=== PATIENT | female | born 1955 | race Caucasian/White ===

== ENCOUNTER 2018-03-16 11:31 | Outpatient (CLI) | payer OTHER ==
--- NOTE | 2018-03-17 09:17 | DEXA Report ---
Procedure Date: 03/16/2018 Accession Number: [id number] / [id number] Procedure: DEX - Dexa Spine and/or Hip CPT Code: FULL RESULT: EXAM: Dexa Spine and/or Hip DATE: 03/16/2018 1:57 PM CLINICAL HISTORY: OSTEOPENIA TECHNIQUE: Dual energy x-ray absorptiometry (DXA) was performed on a [employer] System. Regions measured are the AP Spine, femoral neck, and if needed forearm. COMPARISON: None. In accordance with the International Society for Clinical Densitometry (ISCD) guidelines, data from previous exams may be reanalyzed using current recommendations and techniques. This is done to allow a more accurate basis for comparison with the current study. FINDINGS: The data for the lumbar spine is as follows: BMD (g/cm/cm) T-SCORE Z-SCORE REGION L1 0.881 -2.1 -0.8 L2 0.965 -2.0 -0.7 L3 0.957 -2.0 -0.7 L4 0.944 -2.1 -0.8 TOTAL 0.940 -2.0 -0.7 NOTE: All evaluable vertebrae are used for classification The data for the hip is as follows: BMD (g/cm/cm) T-SCORE Z-SCORE REGION Neck 0.848 -1.4 -0.1 TOTAL 0.864 -1.1 -0.2 NOTE: The femoral neck or total proximal femur, whichever is lowest, is used for classification. IMPRESSION: THE WHO CLASSIFICATION BASED ON THE INTERNATIONAL REFERENCE STANDARD IS OSTEOPENIA. THE FRACTURE RISK IS INCREASED. RECOMMENDATION: Patients with diagnosis of osteoporosis or osteopenia should have regular bone mineral density assessment. For those eligible for Medicare, routine testing is allowed once every 2 years. Testing frequency can be increased for patients who have rapidly progressing disease or for those who are receiving medical therapy to restore bone mass. COMMENT: World Health Organization (WHO) definitions for osteoporosis and osteopenia: NORMAL BMD: T-score at -1.0 or higher, fracture risk is low OSTEOPENIA BMD: T-score between -1.0 and -2.5, fracture risk is increased. OSTEOPOROSIS BMD: T-score at -2.5 or lower, fracture risk is high. National Osteoporosis Foundation recommends: 1. Obtain adequate dietary calcium (at least 1200 mg per day) and vitamin D (400-800 international units per day). 2. Participate, as appropriate, in regular weightbearing and muscle-strengthening exercise. 3. Avoid tobacco use and reduce alcohol and caffeine intake. 4. For more detailed information see the website at www.NOF.org.
== END 2018-03-16 11:32 | disposition home or self-care (01) ==
LOC: DI 11:31
PROVIDERS: ATTEND Registered Nurse
DX: M85.89 Other specified disorders of bone density and structure, multiple sites (principal)
CPT/HCPCS: 77080

== ENCOUNTER 2018-03-16 11:34 | Outpatient (CLI) | payer OTHER ==
--- NOTE | 2018-03-17 09:59 | Mammography Report ---
Procedure Date: 03/16/2018 Accession Number: [id number] / [id number] Procedure: KENNEY - Screening Mammo Dig Bilat CPT Code: FULL RESULT: EXAM: Screening Mammo Dig Bilat DATE: 03/16/2018 2:03 PM CLINICAL HISTORY: 62-year-old with history of late childbearing for screening TECHNIQUE: Bilateral CC and MLO views were obtained. COMPARISON: 01/03/2013, 12/25/2010 FINDINGS: The breasts demonstrate scattered fibroglandular densities bilaterally. Coarse, typically benign calcifications are present. No suspicious masses, clustered microcalcifications, or regions of architectural distortion are identified. IMPRESSION: Benign findings RECOMMENDATION: Routine annual screening unless otherwise clinically indicated. BIRADS CATEGORY 2: Benign findings STANDARD QUALIFYING STATEMENTS: 1. This examination was reviewed with the aid of Computer-Aided Detection (CAD). 2. A negative or benign imaging report should not delay biopsy if clinically suspicious findings are present. Consider surgical consultation if warrented. More than 5% of cancers are not identified by imaging. 3. Dense breasts may obscure an underlying neoplasm.
== END 2018-03-16 11:35 | disposition home or self-care (01) ==
LOC: DI 11:34
PROVIDERS: ATTEND Registered Nurse
DX: Z12.31 Encounter for screening mammogram for malignant neoplasm of breast (principal)
CPT/HCPCS: 77067

== ENCOUNTER 2022-01-06 10:45 | Outpatient (CLI) | payer MEDICARE, OTHER ==
--- NOTE | 2022-01-06 15:30 | DEXA Report ---
PROCEDURE: Dexa Spine and/or Hip INDICATIONS: OT DISRD OF BONE DENSITY AND STRUCTURE, MULTIPLE TECHNIQUE: Dual energy x-ray absorptiometry (DXA) was performed on a [employer]. Regions measur ed are the AP Spine, femoral neck, and if needed forearm. COMPARISON: DEXA, 03/16/2018. FINDINGS: Lumbar Spine: Bone Mineral Density 0.931 g/cm/cm,T score -2.1, osteopenic. Left Hip: Bone Mineral Density 0.895 g/cm/cm,T score -0.9, osteopenic. Left Femoral Neck: Bone Mineral Density 0.822 g/cm/cm, T score -1.6, osteopenic. (T score greater or equal to -1.0: NORMAL) (T score from -1.1 to -2.4: OSTEOPENIA) (T score less than or equal to -2.5 to: OSTEOPOROSIS) Impression: 1. Based on WHO criteria, the patient is osteopenic. Compared to the last exam, there is no statistic ally significant change. Patients with diagnosis of osteoporosis or osteopenia should have regular bone mineral density assess ment. For those eligible for Medicare, routine testing is allowed once every 2 years. Testing frequ ency can be increased for patients who have rapidly progressing disease or for those who are receivin g medical therapy to restore bone mass. Reviewed by: Mary García MD on 01/06/2022 3:29 PM PDT Approved by: Mary García MD on 01/06/2022 3:29 PM PDT Station ID: [id number]
== END 2022-01-06 10:46 | disposition home or self-care (01) ==
LOC: DI 10:45
PROVIDERS: ATTEND Registered Nurse
DX: M85.89 Other specified disorders of bone density and structure, multiple sites (principal)

== ENCOUNTER 2022-01-20 07:46 | Outpatient (CLI) | payer MEDICARE, OTHER ==
--- NOTE | 2022-01-23 16:22 | Mammography Report ---
BILATERAL DIGITAL SCREENING MAMMOGRAM 3D/2D: 01/20/2022 CLINICAL: Routine screening. Comparison is made to exams dated: 03/16/2018 mammogram and 01/03/2013 mammogram - [facility]. There are scattered fibroglandular elements in both breasts. No significant masses, calcifications, or other findings are seen in either breast. There has been no significant interval change. IMPRESSION: NEGATIVE There is no mammographic evidence of malignancy. A 1 year screening mammogram is recommended. This exam was interpreted at Station ID: [id number]. NOTE: For mammograms, a report in lay terms will be sent to the patient. Approximately 15% of breast malignancies will not be visualized mammographically. In the management of a palpable breast mass, a negative mammogram must not discourage biopsy of a clinically suspicious lesion. Electronically Signed By: Alexys Werner M.D. ar/penrad:01/20/2022 09:06:53 ACR BI-RADS Category 1: Negative 3341F PARENCHYMAL PATTERN: (A) - The breast(s) demonstrate(s) scattered fibroglandular densities. BI-RADS CATEGORY: (1) - 1 RECOMMENDATION: (ANNUAL) - Recommend routine annual screening mammography. [id number] 1 year screening LATERALITY: (B)
== END 2022-01-20 07:47 | disposition home or self-care (01) ==
LOC: DI.S 07:46
PROVIDERS: ATTEND Registered Nurse
DX: Z12.31 Encounter for screening mammogram for malignant neoplasm of breast (principal)

== ENCOUNTER 2023-12-31 09:56 | Day surgery (SDC) | payer MEDICARE ==
[2023-12-31] MEDS: LACTATED RINGERS 1,000 ML IV ONE (10:02)
[2023-12-31 10:21] VITALS: O2SAT 98
--- NOTE | 2023-12-31 10:23 | ANESTHESIA ---
Pre-Anesthesia VS, & Labs - Diagnosis screening - Procedure colonoscopy Vital Signs: Temp Pulse Resp BP Pulse Ox O2 Flow Rate 36.6 C 71 12 143/63 H 98 12/31/23 10:13 12/31/23 10:13 12/31/23 10:13 12/31/23 10:13 12/31/23 10:13 Height: 5 ft 1 in Weight (kg): 71 kg Body Mass Index: 29.5 BMI Classification: Overweight - NPO >8 hours Last Fluid Intake: am prep - Is Patient ?: No - Lab Results Lab results reviewed: Yes Home Medications and Allergies Home Medications: Ambulatory Orders No Known Home Medications 12/30/23 No Known Home Medications 12/30/23 Allergies/Adverse Reactions: Allergies Allergy/AdvReac Type Severity Reaction Status Date / Time Sulfa (Sulfonamide AdvReac Itching Verified 12/31/23 10:08 Antibiotics) Anes History & Medical History - Anesthetic History Anesthesia Complications: reports: No previous complications Family history of Anesthesia Complications: Denies Family history of Malignant Hyperthermia: Denies - Medical History Cardiovascular: reports: None Pulmonary: reports: None Gastrointestinal: reports: Diverticulitis Urinary: reports: None Musculoskeletal: reports: None Endocrine/Autoimmune: reports: None Skin: reports: None History of Cancer?: No - Surgical History General: reports: Colonoscopy Eyes Ears Nose Throat (EENT): reports: Tonsil/Adenoidectomy Gynecologic: reports: Tubal ligation, Hysterectomy, Other Exam General: Alert, Oriented x3, Cooperative Dental: WNL Mouth Openin Fingerbreadth Neck Mobility: Normal Mallampati classification: II Thyromental Distance: 4-6 cm Respiratory: Lungs clear, Normal breath sounds, No respiratory distress Cardiovascular: Regular rate Neurological: Normal speech Mental/Cognitive Status: Alert/Oriented X3, Normal for patient Cognitive Status: Within normal limits Plan Anesthesia Type: Total IV Consent for Procedure(s) Verified and Reviewed: Yes Code Status: Attempt Resuscitation ASA classification: 2-Mild systemic disease Is this case an emergency?: No
--- NOTE | 2023-12-31 11:44 | HISTORY & PHYSICAL EXAMINATION ---
Chief Complaint - Chief Complaint Chief Complaint: here for colonoscopy History of Present Illness - History Obtained From Records Reviewed: yes History obtained from: pt Exam Limitations: none - History of Present Illness HPI Comment/Other: history colonoscopy and tubular adenoma in 2016. hx mild diverticulitis. no gi symptoms at this time. 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, Other HEENT: reports: Tonsil/Adenoidectomy Meds/Allgy - Home Medications Home Medications: Ambulatory Orders Medication Instructions Recorded Confirmed No Known Home Medications 12/30/23 12/31/23 - Allergies Allergies/Adverse Reactions: Allergies Allergy/AdvReac Type Severity Reaction Status Date / Time Sulfa (Sulfonamide AdvReac Itching Verified 12/31/23 10:08 Antibiotics) Review of Systems - Other Findings Other Findings: 10 pt ros as above otherwise unremarkable Exam - Vital Signs Vital Signs: Vital Signs x48h Temp Pulse Resp BP Pulse Ox 12/31/23 10:13 36.6 C 71 12 143/63 H 98 - Physical Exam General Appearance: positive: No acute distress, Alert Eyes Bilateral: positive: PERRL ENT: positive: No signs of dehydration Neck: positive: No JVD Respiratory: positive: No respiratory distress Cardiovascular: positive: Regular rate & rhythm Abdomen: positive: No distention Neurologic/Psychiatric: positive: Oriented x3 Conclusion/Plan - Problem List (1) Colon cancer screening Conclusion/Plan: plan colonoscopy. parq held and consent obtained - Lab Results Lab results reviewed: Yes
[2023-12-31] MEDS: LACTATED RINGERS 500 ML IV ONE (12:30)
[2023-12-31 12:44] VITALS: BP 118/65
--- NOTE | 2023-12-31 13:08 | ANESTHESIA POST OP EVALUATION ---
Anesthesia Post Eval - Post Anesthesia Eval Vitals: Last Vital Signs Temp 36.9 C 12/31/23 12:30 Pulse 68 12/31/23 12:41 Resp 18 12/31/23 12:41 BP 118/65 12/31/23 12:41 Pulse Ox 98 12/31/23 12:41 O2 Flow Rate CV Function Including HR & BP: Stable Pain Control: Satisfactory Nausea & Vomiting: Negative Mental Status: Baseline Respiratory Status: Airway Patent Hydration Status: Satisfactory Anesthesia Complications: None
== END 2023-12-31 09:57 | disposition home or self-care (01) ==
LOC: SDS 09:56
PROVIDERS: ATTEND Surgery
DX: Z12.11 Encounter for screening for malignant neoplasm of colon (principal); K57.30 Diverticulosis of large intestine without perforation or abscess without bleeding; Z87.19 Personal history of other diseases of the digestive system; Z86.010 Personal history of colon polyps
CPT/HCPCS: G0105; J7120

== ENCOUNTER 2024-04-05 18:19 | Emergency (ER) | payer MEDICARE ==
[2024-04-05 18:25] VITALS: BP 160/92; O2SAT 97
--- NOTE | 2024-04-05 18:41 | ED Physician Documentation ---
PD HPI HEAD INJURY - Stated complaint Stated Complaint: FALL - Chief complaint Chief Complaint: Trauma Hd/Nk - Additional information Additional information: 68-year-old female presents emergency department for ground-level fall hitting the back of her head. Patient said that she missed a step and fell and hit the back of her head on something that she describes as a bleacher. She is not on blood thinners she has no loss of consciousness no nausea or vomiting she says that she has a significant hematoma to the posterior scalp. No neurological deficits no neck pain able to ambulate without any difficulty no dizziness no nausea no headache. 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, Other HEENT: Tonsil/Adenoidectomy - Present Medications Home Medications: Ambulatory Orders Medication Instructions Recorded Confirmed No Known Home Medications 12/30/23 12/31/23 - Allergies Allergies/Adverse Reactions: Allergies Allergy/AdvReac Type Severity Reaction Status Date / Time Sulfa (Sulfonamide AdvReac Itching Verified 04/05/24 18:22 Antibiotics) - Social History Does the pt smoke?: No Smoking Status: Never smoker Does the pt drink ETOH?: No Does the pt have substance abuse?: No - Immunizations Immunizations are current?: Yes - POLST Patient has POLST: No PD ED PE NORMAL - Vitals Vital signs reviewed: Yes - General General: Alert and oriented X 3, No acute distress, Well developed/nourished - HEENT HEENT: Atraumatic, PERRL, EOMI - Neck Neck: No bony TTP, C-Spine cleared by NEXUS criteria - Cardiac Cardiac: RRR - Respiratory Respiratory: No respiratory distress - Abdomen Abdomen: Normal bowel sounds - Derm Derm: Other (2 cm laceration to the posterior scalp with about a 3 cm hematoma) - Neuro Neuro: Alert and oriented X 3, water main pipe layer 2-12 intact, No motor deficit, No sensory deficit, Normal speech Eye Opening: Spontaneous Motor: Obeys Commands Verbal: Oriented GCS Score: 15 - Psych Psych: Normal mood, Normal affect Results - Vitals Vitals: Oxygen O2 Source Room air - Rads (name of study) Head CT without con Relevant Findings:: Final report received, EMP independent interpretation of test, Other (No acute intracranial hemorrhages or abnormalities) PD Medical Decision Making - ED course ED course: 68-year-old female presents emergency department for head injury. Patient missed a step but sounds like it was strictly a mechanical fall hitting the back of her head on a bleacher like object. She did not lose consciousness we went ahead and do a head CT without con for further evaluation and there is no intracranial hemorrhages or abnormalities. She did have a 2 cm laceration to the posterior scalp and we were able to close the wound well with hair trepanation technique with 1 knot as well as Dermabond. Patient remains neurologically intact NIH score 0, able to ambulate with any difficulty she was willing to take some Tylenol as she was starting to feel more sore she was sitting there continues to deny neck pain, neck was cleared by Nexus criteria not warranting any cervical spine imaging. Return precautions given all questions answered patient told to follow-up primary care provider as needed all questions answered patient safe to discharge with her daughter. Departure - Departure Disposition: 01 Home, Self Care Clinical Impression: Head injury, Scalp laceration Instructions: ED Laceration Facial Skin Glue Comments: Thank you for trusting us with your care. We have completed a head CT and we are not seeing any intracranial hemorrhage or abnormalities. Please follow-up with your primary care provider as needed over the next couple days if you start to feel nauseous having any worsening head pain or starting to feel confused or dizzy please come back into the emergency department for reevaluation. We have put some glue on your scalp with something called in hair apposition technique there is a knot in the back of your hair this will eventually grow out if it bot hers you can eventually cut it out. You can wash your scalp with soap and water tomorrow but the more dry you can keep it at the bed of the glue will stay on. You can take Tylenol ibuprofen for any pain or discomfort and please have a low threshold to come back into the ER if you are noticing any neurological changes or deficits. Forms: PCP List Discharge Date/Time: 04/05/24 20:45
--- NOTE | 2024-04-05 19:56 | CT Report ---
PROCEDURE: Head WO INDICATIONS: posterior head hematoma. fall from stair TECHNIQUE: Noncontrast 4.5 mm thick angled axial sections acquired from the foramen magnum to the vertex. For r adiation dose reduction, the following was used: automated exposure control, adjustment of mA and/or kV according to patient size. COMPARISON: None. FINDINGS: Image quality: Excellent. CSF spaces: Basal cisterns are patent. No extra-axial fluid collections. Ventricles are normal in size and shape. Brain: No midline shift. No intracranial masses or hemorrhage. Lloyd-white matter interface is norm al. Skull and face: Right posterior scalp hematoma without underlying fracture. Calvarium and visualized facial bones are intact, without suspicious lesions. Sinuses: Visualized sinuses and mastoids are clear. IMPRESSION: No acute intracranial pathology. Reviewed by: Huy Horne MD on 04/05/2024 7:55 PM PDT Approved by: Huy Horne MD on 04/05/2024 7:55 PM PDT Station ID: [id number]
[2024-04-05] MEDS: LIDOCAINE 2%-EPI 1:100000 20 ML MDV SUBQ STA (20:28)
== END 2024-04-05 20:45 | disposition home or self-care (01) ==
LOC: ED 18:19
DX: S09.90XA Unspecified injury of head, initial encounter (principal); S01.01XA Laceration without foreign body of scalp, initial encounter; W10.8XXA Fall (on) (from) other stairs and steps, initial encounter
CPT/HCPCS: 99283; 99284